=== PATIENT | female | born 1990 | race Caucasian/White ===

== ENCOUNTER 2018-01-04 11:23 | Emergency (ER) | payer BC ==
[2018-01-04 12:21] VITALS: BP 103/57
--- NOTE | 2018-01-04 12:30 | UC ---
Skin Complaint HPI - HPI Summary HPI Summary: 27 yo female presents with rash and foul smelling umbilicus. She noticed this last night when her belly button itched and she saw the area was red and had a foul odor. Denies fever, chills, hx of abdominal surgery/hernia, or injury to the area. - History of Current Complaint Chief Complaint: UCGeneralIllness Time Seen by Provider: 01/04/18 12:30 Stated Complaint: BELLY BUTTON ISSUES Hx Last Menstrual Period: 3 weeks Onset/Duration: Sudden Onset Current Severity: None Pain Intensity: 0 - Allergy/Home Medications Allergies/Adverse Reactions: Allergies Allergy/AdvReac Type Severity Reaction Status Date / Time No Known Allergies Allergy Verified 01/04/18 12:21 Review of Systems Constitutional: Negative Skin: Other - Umbilicus rash/odor Respiratory: Negative Cardiovascular: Negative Gastrointestinal: Negative Neurovascular: Negative Neurological: Negative Psychological: Negative All Other Systems Reviewed And Are Negative: Yes PMH/Surg Hx/FS Hx/Imm Hx - Additional Past Medical History Additional PMH: None Previously Healthy: Yes - Surgical History Surgical History: Yes Surgery Procedure, Year, and Place: nasal repair. dental work. tubes in ears as baby - Family History Known Family History: Positive: None - Social History Occupation: Employed Full-time Lives: With Family Alcohol Use: Rare Substance Use Type: None Smoking Status (MU): Light Every Day Tobacco Smoker - Immunization History Most Recent Tetanus Shot: UTD Physical Exam - Summary Physical Exam Summary: GENERAL: NAD. WDWN. No pain distress. SKIN: Umbilicus: moderate erythema within. Scant clear drainage. No odor appreciated. No streaking or bleeding. NECK: Supple. Nontender. No lymphadenopathy. CHEST: No accessory muscle use. Breathing comfortably and in no distress. CV: RRR. Without m/r/g. NEURO: Alert. CN II-XII grossly intact. PSYCH: Age appropriate behavior. Triage Information Reviewed: Yes Vital Signs: Initial Vital Signs Temp 98.2 F 01/04/18 12:17 Pulse 59 01/04/18 12:17 Resp 18 01/04/18 12:17 BP 103/57 01/04/18 12:17 Pulse Ox 100 01/04/18 12:17 Course/Dx - Course Course Of Treatment: Suspect yeast infection of skin fold. Culture taken. Treat with nystatin cream. - Diagnoses Provider Diagnoses: Yeast infection umbilicus Discharge - Sign-Out/Discharge Documenting (check all that apply): Discharge/Admit/Transfer - Discharge Plan Condition: Stable Disposition: HOME Prescriptions: Nystatin CREAM* [Nystatin Cream*] 1 applic TOPICAL BID #1 tube Patient Education Materials: Skin Yeast Infection (ED) Referrals: No Primary Care Phys,NOPCP [Primary Care Provider] - Additional Instructions: If you develop a fever, shortness of breath, chest pain, new or worsening symptoms - please call your PCP or go to the ED. - Billing Disposition and Condition Condition: STABLE Disposition: HOME
== END 2018-01-04 12:50 | disposition home or self-care (01) ==
LOC: UCEAST 11:23
DX: B37.89 Other sites of candidiasis (principal); F17.200 Nicotine dependence, unspecified, uncomplicated
CPT/HCPCS: 87070; 87205; 87640; 87641; 99202; G0463

== ENCOUNTER 2018-03-14 10:01 | Emergency (ER) | payer BC ==
[2018-03-14 10:47] VITALS: BP 105/64
--- NOTE | 2018-03-14 11:31 | UC ---
Skin Complaint HPI - HPI Summary HPI Summary: 27 year old female presents with skin lesion to chin. States she noted last night. Thought it was a pimple and attempted to "pop it". States has noticed moderate amount of drainage from the lesion since. Mildly tender to touch and mild pruritus. Has had problems with skin lesions in the past that have required antibiotics. Denies fever, chills, SOB, changes in soaps, lotions, detergents, cosmetics, or recent exposure to known environmental irritants. - History of Current Complaint Chief Complaint: UCSkin Time Seen by Provider: 03/14/18 11:04 Stated Complaint: SKIN COMPLAINT Hx Obtained From: Patient Hx Last Menstrual Period: 03/12/18 ?: No Onset/Duration: Sudden Onset Onset Severity: Mild Current Severity: Mild Pain Intensity: 4 Location: Face - chin Character: Pruritus, Painful Aggravating Factor(s): Nothing Alleviating Factor(s): Nothing Associated Signs & Symptoms: Positive: Drainage. Negative: Difficulty Breathing , Fever, Chills, Cough, Wheezing, Throat Tightening, Red Streaks - Allergy/Home Medications Allergies/Adverse Reactions: Allergies Allergy/AdvReac Type Severity Reaction Status Date / Time No Known Allergies Allergy Verified 03/14/18 10:47 Review of Systems Constitutional: Negative Skin: Other - see HPI Respiratory: Negative Is Patient Immunocompromised?: No All Other Systems Reviewed And Are Negative: Yes PMH/Surg Hx/FS Hx/Imm Hx - Additional Past Medical History Additional PMH: non-contributory - Surgical History Surgical History: Yes Surgery Procedure, Year, and Place: nasal repair. dental work. tubes in ears as baby - Family History Known Family History: Positive: None - Social History Occupation: Employed Full-time Lives: With Family Alcohol Use: Rare Substance Use Type: None Smoking Status (MU): Light Every Day Tobacco Smoker - Immunization History Most Recent Tetanus Shot: UTD Physical Exam Triage Information Reviewed: Yes Appearance: Well-Appearing, No Pain Distress, Well-Nourished Vital Signs: Initial Vital Signs Temp 98 F 03/14/18 10:45 Pulse 63 03/14/18 10:45 Resp 16 03/14/18 10:45 BP 105/64 03/14/18 10:45 Pulse Ox 99 03/14/18 10:45 Vital Signs Reviewed: Yes ENT: Positive: Normal ENT inspection Neck: Positive: No Lymphadenopathy Respiratory: Positive: No respiratory distress Skin Exam: Other - Single papular lesion <0.5 cm in diameter with crusting noted to chin. No erythema, induration, or fluctuance noted. Course/Dx - Course Course Of Treatment: 27 year old female with reported history of skin infections requiring antibiotic treatment presents with draining skin lesion to chin. Appears to be a ruptured pustule with localized inflammation. No evidence of systemic infection or abscess. Will treat with topical mupirocin ointment x 7 days. Return for worsening of symptoms. - Differential Diagnoses - Skin Complaint Differential Diagnoses: Abscess, Cellulitis, Contact Dermatitis, Impetigo, MRSA - Diagnoses Provider Diagnoses: infected skin leson likely from staph or strep Discharge - Sign-Out/Discharge Documenting (check all that apply): Patient Departure - Discharge Plan Condition: Stable Disposition: HOME Prescriptions: Mupirocin 2% OINT* [Bactroban 2 % Oint*] 1 applic TOPICAL BID #1 tube Referrals: No Primary Care Phys,NOPCP [Primary Care Provider] - Additional Instructions: Keep the area clean. Washing gently with soap and water is sufficient. Apply mupirocin (Bactroban) ointment to affected area twice daily for 7 days. Seek immediate medical attention if you develop fever greater than 100.5 F, have increased redness, swelling, or any worsening of symptoms. - Billing Disposition and Condition Condition: STABLE Disposition: Home
== END 2018-03-14 11:30 | disposition home or self-care (01) ==
LOC: UCEAST 10:01
DX: L08.9 Local infection of the skin and subcutaneous tissue, unspecified (principal); F17.200 Nicotine dependence, unspecified, uncomplicated
CPT/HCPCS: 99212; G0463

== ENCOUNTER 2019-02-28 18:13 | Emergency (ER) | payer BC ==
[2019-02-28 18:22] VITALS: BP 94/55
--- NOTE | 2019-02-28 19:39 | UC ---
Back Pain HPI - HPI Summary HPI Summary: 28 yo female with LBP x 5-6 weeks daily pain no injury worse with movement /lifting no bowel or bladder symptoms no UTI symptoms no fever no wt loss - History of Current Complaint Chief Complaint: UCBackPain Stated Complaint: BACK PAIN Time Seen by Provider: 02/28/19 18:41 Hx Obtained From: Patient Hx Last Menstrual Period: <1 WEEK AGO Onset/Duration: Gradual Onset Timing: Constant Severity Initially: Mild Severity Currently: Mild Pain Intensity: 4 Pain Scale Used: 0-10 Numeric Back Pain: Is Diffuse Character: Aching, Throbbing, Spasmodic Aggravating Factor(s): Movement Alleviating Factor(s): Rest, OTC Meds Associated Signs And Symptoms: Positive: Negative - Allergies/Home Medications Allergies/Adverse Reactions: Allergies Allergy/AdvReac Type Severity Reaction Status Date / Time No Known Allergies Allergy Verified 02/28/19 18:22 Home Medications: Home Medications Ibuprofen TAB* [Advil TAB*] 400 mg PO ONCE PRN 02/28/19 [History Confirmed 02/28] PMH/Surg Hx/FS Hx/Imm Hx Previously Healthy: Yes - Surgical History Surgical History: Yes Surgery Procedure, Year, and Place: nasal repair. dental. tubes in ears as baby - Family History Known Family History: Positive: Non-Contributory - Social History Alcohol Use: None Substance Use Type: None Smoking Status (MU): Current Some Day Smoker Type: Cigarettes, eCigarettes Amount Used/How Often: 2-3 CIG/DAY - Immunization History Most Recent Tetanus Shot: UTD Review of Systems All Other Systems Reviewed And Are Negative: Yes Constitutional: Positive: Negative Skin: Positive: Negative Eyes: Positive: Negative ENT: Positive: Negative Respiratory: Positive: Negative Cardiovascular: Positive: Negative Gastrointestinal: Positive: Negative Genitourinary: Positive: Negative Motor: Positive: Negative Neurovascular: Positive: Negative Musculoskeletal: Positive: Myalgia Neurological: Positive: Negative Psychological: Positive: Negative Physical Exam Triage Information Reviewed: Yes Appearance: Well-Appearing, No Pain Distress, Well-Nourished Vital Signs: Initial Vital Signs Temp 97.8 F 02/28/19 18:17 Pulse 67 02/28/19 18:17 Resp 16 02/28/19 18:17 BP 94/55 02/28/19 18:17 Pulse Ox 96 07/25/19 18:17 Eyes: Positive: Conjunctiva Clear ENT: Positive: Hearing grossly normal. Negative: Nasal congestion, Nasal drainage, Tonsillar swelling, Tonsillar exudate, Sinus tenderness, Uvula midline Neck: Positive: Supple, Nontender Respiratory: Positive: Lungs clear, Normal breath sounds, No respiratory distress Cardiovascular: Positive: RRR, No Murmur Musculoskeletal: Positive: ROM Intact, No Edema Neurological: Positive: Alert Psychological Exam: Normal Skin Exam: Normal Back Pain Course/Dx - Differential Dx/Diagnosis Provider Diagnosis: Acute lumbar myofascial strain Discharge - Sign-Out/Discharge Documenting (check all that apply): Patient Departure All imaging exams completed and their final reports reviewed: No Studies - Discharge Plan Condition: Stable Disposition: HOME Prescriptions: Cyclobenzaprine (NF) [Cyclobenzaprine 5 MG (NF)] 5 mg PO TID PRN #21 tab PRN Reason: Spasms - Back Patient Education Materials: Low Back Strain (ED) Referrals: [facility] [place] [facility] REFERR[facility] [Outside] - 2 Weeks (call this number to help you find a local provider) Additional Instructions: PT consult continue ibuprofen - Billing Disposition and Condition Condition: STABLE Disposition: Home
--- NOTE | 2019-03-02 16:54 | ED ---
Progress - Progress Note Progress Note: Final urine culture report - no growth. No change in POC. Course/Dx - Diagnoses Provider Diagnoses: Acute lumbar myofascial strain Discharge - Sign-Out/Discharge Documenting (check all that apply): Post-Discharge Follow Up All imaging exams completed and their final reports reviewed: No Studies - Discharge Plan Condition: Stable Disposition: HOME Prescriptions: Cyclobenzaprine (NF) [Cyclobenzaprine 5 MG (NF)] 5 mg PO TID PRN #21 tab PRN Reason: Spasms - Back Patient Education Materials: Low Back Strain (ED) [place] [facility]] - 2 Weeks (call this number to help you find a local provider) Additional Instructions: PT consult continue ibuprofen - Billing Disposition and Condition Condition: STABLE Disposition: Home - Attestation Statements Provider Attestation: I was available for consult. This patient was seen by the [facility]. The patient was not presented to, seen by, or examined by me. -Abigail
== END 2019-02-28 19:50 | disposition home or self-care (01) ==
LOC: UCEAST 18:13
DX: S39.012A Strain of muscle, fascia and tendon of lower back, initial encounter (principal); X58.XXXA Exposure to other specified factors, initial encounter; Y92.9 Unspecified place or not applicable; F17.210 Nicotine dependence, cigarettes, uncomplicated
CPT/HCPCS: 72110; 81002; 87086; 99212; G0463